=== PATIENT | male | born 1995 | race African-American/Black ===

== ENCOUNTER 2023-09-08 08:11 | Emergency (ER) | payer OTHER, SELFPAY ==
[2023-09-08 08:13] VITALS: BP 118/88; PULSE 64; RESP 16; TEMP 36.8; O2SAT 98; BMI 30.5
--- NOTE | 2023-09-08 09:12 | ED.NAVMDI ---
HPI - Nausea/Vomiting/Diarrhea General Chief complaint: Nausea/Vomiting/Diarrhea Stated complaint: Vomiting, diarrhea, fever Time Seen by Provider: 09/08/23 09:10 Source: patient, RN notes reviewed and old records reviewed Mode of arrival: ambulatory History of Present Illness HPI Narrative: 27-year-old male with no significant past medical history presenting to the ED complaining of myalgias, chills, fever T-max 101 degrees, headache, cough, nausea, vomiting, and diarrhea since last night. Reports about 4 episodes of nonbloody emesis and diarrhea, resolved/improving at present. Reports abdominal cramping. Admits to sick contact with COVID-19. Denies recent travel, suspicious food intake, dysuria/hematuria, flank pain MD elicited complaint: nausea, vomiting and diarrhea Related Data Previous Rx's Medication Instructions Recorded ondansetron 4 mg disintegrating 4 mg PO Q8H PRN nausea and 09/08/23 tablet vomiting #10 tabs Allergies Allergy/AdvReac Type Severity Reaction Status Date / Time No Known Allergies Allergy Verified 09/08/23 09:16 Review of Systems Review of Systems: Constitutional:+Fever, No Chills ENT/Mouth: No Ear Pain, No Nasal Congestion, No Sinus Pain, No Hoarseness, No sore throat, No Rhinorrhea, No Swallowing Difficulty Cardiovascular: No Chest Pain, No SOB Respiratory: + Cough, No Sputum, No Wheezing Gastrointestinal: + Nausea, + Vomiting, + Diarrhea, No Constipation, + Abdominal pain Genitourinary: No Dysuria, No Urinary Frequency, No Hematuria, No Urinary Incontinence/retention, No Urgency, No Flank Pain Musculoskeletal: No joint pain, + Myalgias, No Joint Swelling Skin: No Skin Lesions, No rash Neuro: No Weakness, No Numbness, No Paresthesias,+ headache Yes all other systems are reviewed and are negative Constitutional: Constitutional: Reports as per HPI [facility] Past Medical History Attestation statement: The following information was validated with the patient. Source: old records reviewed Onset Date is defined in the Problem List Problems that require an onset date and time if occurred within 24 hrs of arrival to the ED Aortic Dissection and Rupture; Neurologic impairment; Cardiopulmonary Arrest; Endotracheal Intubation; Insertion or Replacement of Mechanical Circulatory Assist Device Social History Social History Smoked in Last 30 Days: No Use of substances other than those prescribed or required for medical reasons: No Advance Directives: No Advance Directives Information Provided: Yes Physical Exam Vital Signs: Vital Signs: Last Vital Signs Temp 98.2 F 09/08/23 08:13 Pulse 66 09/08/23 10:23 Resp 16 09/08/23 10:23 BP 139/89 09/08/23 10:23 Pulse Ox 98 09/08/23 10:23 O2 Del Method Room Air 09/08/23 10:23 BMI result Body Mass Index 30.5 Const: General: cooperative, healthy appearing and no acute distress Orientation/consciousness: patient oriented x3 Limitations: no limitations HEENT: Head: Yes normal to inspection and Yes atraumatic Ears: hearing grossly normal bilaterally General nose exam: Normal external nose present Face and sinus: Yes normal facial exam Mouth: Normal oral and palatal mucosa present Throat: Yes posterior oropharynx normal Eyes: General: appearance normal, both eyes and all related structures EOM: EOMs intact bilaterally Neck: Neck: Yes normal visual inspection and Yes no meningeal signs Resp: Effort & Inspection: normal respiratory effort and no respiratory distress Auscultation: clear to auscultation bilaterally, no crackles and no wheezes Cardio: Rate: regular rate Heart sounds: S1 normal heart sound present and S2 normal heart sound present GI: Inspection: Yes normal to inspection Palpation (GI): Soft to palpation, nontender, no guarding and not rigid : General: Yes no CVA tenderness Back/Spine/Pelvis: Back: no CVA tenderness Skin: Rashes: no rashes Wounds: no wounds Neuro: General: patient oriented x3, tone normal and no meningeal signs Cranial nerves: Yes CN's II-XII intact bilaterally Gait exam (Neuro): Normal gait present Extrem: General: Yes normal to inspection Course Course Course Narrative: -1042--UA negative. COVID and influenza negative. > patient is tolerating p.o. in the ED without difficulty Results discussed with patient including worrisome signs and symptoms and strict return precautions, and when to return to the emergency department. They verbalized understanding and feel safe for discharge at this time. Medications Administered Discontinued Medications Generic Name Dose Route Start Last Admin Trade Name Freq PRN Reason Stop Dose Admin Ibuprofen 600 mg 09/08/23 09:16 09/08/23 09:27 Ibuprofen 600 Mg Tablet PO 09/08/23 09:17 600 mg ONCE ONE Administration Ondansetron HCl 4 mg 09/08/23 09:16 09/08/23 09:27 Ondansetron Odt 4 Mg Tab.Didier BLACKU 09/08/23 09:17 4 mg ONCE ONE Administration Medical Decision Making Medical Decision Making [facility] Narrative: 27-year-old male with no significant past medical history presenting to the ED complaining of myalgias, chills, fever T-max 101 degrees, headache, cough, nausea, vomiting, and diarrhea since last night. On exam vital signs stable, NAD, nontoxic appearing, abdomen soft/nontender, no CVAT. Ambulating with steady gait. Lungs CTA. Concern for viral illness vs gastroenteritis. Lower suspicion for appendicitis/diverticulitis, UTI, pyelo, testicular torsion or pneumonia Plan: Viral testing, UA, sublingual Zofran, p.o. challenge Please refer to course for remaining clinical decision making, interpretation of labs/imaging results, and discussions with consultants and/or family members. Differential Diagnosis Differential Diagnoses: The differential diagnosis associated with the presentation includes As above Admission/Observation Consideration of admission/observation: Escalation of care including admission/observation considered Lab Data [facility] Lab Attestation statement: I reviewed the patient's lab results. Labs: Lab Results 09/08/23 Range/Units 09:25 Urine Color Yellow Urine Appearance Clear Urine pH 7.5 (5.0-9.0) Ur Specific [place] 1.015 (1.005-1.025) Urine Protein Negative (Neg-Trace) mg/dL Urine Glucose (UA) Negative (Negative) mg/dL Urine Ketones Negative (Negative) mg/dL Urine Blood Negative (Negative) Urine Nitrite Negative (Negative) Ur Leukocyte Esterase Negative (Negative) COVID-19 (DANAE) Negative (Negative) COVID-19 Clin Com See Note Influenza Type A (BARB) Negative (Negative) Influenza Type B (BARB) Negative (Negative) Influenza A & B Note See Note Radiology Impression Discussion of test interpretation with radiology: I have reviewed the radiologist's reading. External Record Review External record reviewed: Inpatient record, Office record, Outpatient record, Prior outpatient labs, Prior outpatient radiology, Primary care record and Outside ED record Tests considered The following testing was considered but not selected: As above Prescription Management I considered prescription management with: Pain Medication Discharge Plan Discharge Clinical Impression: Viral illness Patient Disposition: Home, Self-Care Instructions: Viral Syndrome (ED) Additional Instructions: You tested negative for COVID and flu. Your urine is not infected Zofran as an antinausea medicine take as needed Make sure you stay hydrated Practice a bland diet, avoid spicy foods, sweets, caffeine and chocolate If symptoms persist or worsen or you are unable to eat or drink return to the ED Prescriptions: New ondansetron 4 mg tablet,disintegrating 4 mg PO Q8H PRN (Reason: nausea and vomiting) Qty: 10 0RF Referrals: Physician,Unknown J [Primary Care Provider] - Stand Alone Forms: Work/School Release Interventions: ED Discharge Assessment Last Done: 09/08/23 10:56 Discharge Date/Time: 09/08/23 10:56
[2023-09-08] MEDS: Ondansetron ODT 4 MG TAB.RAPDIS TRANSLINGU (09:27)
[2023-09-08] MEDS: Ibuprofen 600 MG TABLET PO (09:27)
[2023-09-08 09:39] LABS: Appearance Urine Clear; Color Urine Yellow; Glucose Urine UA Negative (Negative); Leukocyte Esterase Urine Negative (Negative); Nitrite Urine Negative (Negative); PH 7.5 (5.0-9.0); Specific Gravity - Urine 1.015 (1.005-1.025); Urine Blood Negative (Negative); Urine Ketones Negative (Negative); Urine Protein Negative (Neg-Trace)
[2023-09-08 10:03] LABS: COVID-19 Test Negative (Negative); IDNOW Serial# 08D9AD1C
[2023-09-08 10:06] LABS: IDNOW Serial# 08D9AD1C; Influenza A Negative (Negative); Influenza B2 Negative (Negative)
[2023-09-08 10:23] VITALS: BP 139/89; PULSE 66; RESP 16; O2SAT 98
--- NOTE | 2023-09-08 10:56 | PC.NURSE ---
No IV needed
== END 2023-09-08 10:56 | disposition home or self-care (01) ==
PROVIDERS: Physician Assistant; Emergency Provider Emergency Medicine
DX: B34.9 Viral infection, unspecified (principal); R51.9 Headache, unspecified; R11.2 Nausea with vomiting, unspecified; Z11.52 Encounter for screening for COVID-19
CPT/HCPCS: 81003; 87502; 87635; 99284